=== PATIENT | male | born 1990 | race Caucasian/White ===

== ENCOUNTER 2017-02-12 23:10 | Emergency (ER) | payer OTHER ==
[~2017-02-12] VITALS: Ht 175.3 cm; Wt 95.3 kg
[2017-02-12 23:20] VITALS: BP_SYST 129
[2017-02-13 00:27] VITALS: BP_SYST 129
== END 2017-02-13 00:27 | disposition home or self-care (01) ==
LOC: SED 23:10
DX: S61.216A Laceration without foreign body of right little finger without damage to nail, initial encounter (principal); W45.8XXA Other foreign body or object entering through skin, initial encounter; Y93.E8 Activity, other personal hygiene; Y92.89 Other specified places as the place of occurrence of the external cause; Y99.8 Other external cause status
CPT/HCPCS: 99283